=== PATIENT | male | born 1975 | race Two or more races ===

== ENCOUNTER 2018-04-01 09:30 | Emergency (ER) | payer OTHER ==
[2018-04-01] MEDS ORDERED: ONDANSETRON 4 MG/2 ML VIAL IVP ONE (10:28)
[2018-04-01] MEDS ORDERED: NS 1,000 ML IV ONE (10:38)
--- NOTE | 2018-04-01 10:46 | EDPHY ---
General - History Smoking Status: Current every day smoker Time Seen by Provider: 04/01/18 10:39 Narrative: CHIEF COMPLAINT: Fall from ladder, heel pain HISTORY OF PRESENT ILLNESS: Patient presents by EMS with complaints of fall from ladder. He states that he was approximately 10-12 feet in the air when he fell off of the ladder. He landed on his left heel in scraped his left hand. It is severe, 10/10 pain in the left heel. Able to bear weight. He denies any head strike or loss of conscious. He has no headache or neck pain. No chest, back or abdominal pain. No pain in the right arm, left arm or right leg. He has minimal pain in the left forbes. He has an abrasion to the left palm that is minimally painful. He has no nausea vomiting. No visual disturbance. No other associated complaints or modifying factors. REVIEW OF SYSTEMS: 10 systems were reviewed and negative with the exception of the elements mentioned in the history of present illness. PCP: None SPECIALISTS: None PAST MEDICAL HISTORY: Denies ANTICOAGULATED: No PAST SURGICAL HISTORY: No surgical history SOCIAL HISTORY: Lives independently. Works as a painter helper FAMILY HISTORY: Noncontributory EXAMINATION: General Appearance: Alert, no distress. Appears to be in discomfort. Conversing in full sentences. Head: normocephalic, atraumatic. No Ang sign. No raccoon eyes. no depression or deformity. Eyes: Pupils equal and round, no conjunctival pallor or injection ENT, Mouth: Mucous membranes moist Neck: Midline trachea. Normal inspection, supple, non-tender. No crepitus, step-off or deformity. Respiratory: Lungs are clear to auscultation Cardiovascular: Regular rate and rhythm. No murmur. Symmetric radial pulses 2 +. Symmetric DP PT pulses 2+. Gastrointestinal: Abdomen is soft and nontender no tympany rigidity. Back: No midline tenderness. No crepitus, step-off or deformity. Neurological: GCS 15. A&O, nonfocal. Strength is 5/5 in the upper extremities. Strength is 5/5 in the right knee and left knee. Unable to test strength of the left great toe due to pain. Skin: Warm and dry, no rash. Superficial abrasion to the palm of the left hand without laceration or puncture. Extremities: Significant swelling and tenderness of the left calcaneus. Minimal tenderness of left ankle. There is no tenderness of the shoulders, elbows, wrist, snuffbox, knees, hips bilaterally. Will left lower extremity has soft compartments. Psychiatric: Mood and affect normal DIFFERENTIAL DIAGNOSES: Including but not limited to calcaneus fracture, foot sprain, foot fracture, ankle fracture, ankle sprain, ankle dislocation, abrasion MDM: 10:35 a.m. Fall from approximately 10-12 feet with left heel and forbes pain with x-ray revealing fracture of the calcaneus only. He is awake alert no acute distress. Mildly tachycardic, which I suspect is due to pain. He has no complaints of pain anywhere else on his person. There is no tenderness at any point of his vertebral spine, but we will obtain lumbar imaging due to concomitant risk of fracture. 11:00 a.m. Case discussed with orthopedist Dr. Hooper. He has reviewed the x-ray with me. He request a dedicated calcaneus plain film as well the CT of the foot without contrast. He also request a long-leg posterior with stirrup splint heavily padded. He would like to see the patient is clinic on Thursday. 11:45 a.m. Patient re-evaluated. We will repeat pain medication and administer IV fluid. Urinalysis has been obtained to rule out possible renal injury. This is within normal limits and he has no abdominal pain by admission or any tenderness on palpation. Proceed with further imaging and splinting. 1:15 p.m. Patient has return from CT scanner and will be placed in a left lower extremity splint. 1:50 p.m. I discussed the CT findings with Dr. Freeman. There is a questionable abnormality T12 which does not clinically correlate. This is likely chronic as he has no complaints of pain and no palpable tenderness on exam. He does have calcaneus fracture that is closed. He has been placed in a posterior splint and stirrup and I have participated in this. He is neuro intact post splinting. I had a very lengthy discussion using the manager furniture with his nonweightbearing status and precautions. We discussed ice, elevation anti- inflammatories and pain medication. I stressed the importance of elevation to prevent unnecessary swelling as this may delayed his healing, increase his pain , and delay surgical intervention if needed. He has an appointment that has been arranged for him on [place] with Dr. Hooper here in [place] at 2:00 p.m.. We discussed ED precautions. I have answered all his questions. This was all done with the Turkmen certified court interpreter at bedside. He is discharged home well-appearing, stable condition with his pain tolerable at this time. SUPERVISION: Patient was independently examined, but I discussed the case with my secondary supervising physician Dr. Dong CONSULTATION: Orthopedic surgery, Dr. Hooper ([facility]) - Diagnostics Imaging Results: Imaging Impressions Ankle X-Ray 04/01/18 09:36 Impression: Acute calcaneal fracture, as-detailed. Calcaneus X-Ray 04/01/18 11:11 Impression: Acute calcaneal fracture. Portable Left Tibia-Fibula (AP and Lateral Views, 3 Views Total), at 11:19 AM: The tibia and fibula appear intact. There is no fracture, dislocation, or periostitis. There is some mild degenerative pinnacling of the medial tibial spine. The calcaneal fracture is imaged along the caudal margin of the film. There is no ankle joint effusion, although there is soft tissue swelling of the hindfoot. Impression: 1. Intact tibia and fibula. 2. Calcaneal fracture. Note: CT imaging of the left ankle has also been requested, and will be separately reported. Tibia/Fibula X-Ray 04/01/18 11:11 Impression: Acute calcaneal fracture. Portable Left Tibia-Fibula (AP and Lateral Views, 3 Views Total), at 11:19 AM: The tibia and fibula appear intact. There is no fracture, dislocation, or periostitis. There is some mild degenerative pinnacling of the medial tibial spine. The calcaneal fracture is imaged along the caudal margin of the film. There is no ankle joint effusion, although there is soft tissue swelling of the hindfoot. Impression: 1. Intact tibia and fibula. 2. Calcaneal fracture. Note: CT imaging of the left ankle has also been requested, and will be separately reported. Extremity CT 04/01/18 11:35 Impression: Severely comminuted mildly displaced calcaneal fracture with subtalar joint involvement. Findings communicated via secure Voalte text to Elvis Lancaster 04/01/2018 at 13 :[address] 04/01/18 11:35 Impression: 1. Mild anterior wedge compression deformity at T12 with a chronic appearance. No evidence for acute fracture of the lumbar spine. 2. Early degenerative disk and degenerative joint disease at L4-L5 and L5-S1. Results called and discussed with Elvis Lancaster PA-C on April 01, 2018 at 1329 hours. Discussion: The patient was evaluated and managed by the Physician [employer] Torch Brazier. I discussed the patient's presentation and course with the midlevel provider with them and agree with the evaluation. My co-signature indicates that I have reviewed this chart and I agree with the findings and plan of care as documented. I am the secondary supervising physician. (Cha Dong) - Objective Vital Signs: Initial Vital Signs Temperature (C) 36.8 C 04/01/18 09:37 Heart Rate 114 H 04/01/18 09:37 Respiratory Rate 18 04/01/18 09:37 Blood Pressure 147/114 H 04/01/18 09:37 O2 Sat (%) 97 04/01/18 09:37 O2 Delivery Mode Room Air Allergies/Adverse Reactions: No Known Allergies Allergy (Unverified 04/01/18 09:33) Home Medications: Medication Instructions Recorded Ondansetron Odt [Zofran Odt 4 mg 4 mg PO Q6 PRN #12 tab 04/01/18 (*)] Potassium Cl [Klor-Con] 10 meq PO DAILY 04/01/18 oxyCODONE HCL/ACETAMINOPHEN 1 each PO Q4-6PRN PRN #20 tablet 04/01/18 [Percocet 5-325 mg Tablet] Laboratory Results: 04/01/18 11:12 Urine Color PALE YELLOW Urine Appearance CLEAR Urine pH 5.0 (5.0-7.5) Ur Specific [place] 1.005 (1.002-1.030) Urine Protein NEGATIVE (NEGATIVE) Urine Ketones NEGATIVE (NEGATIVE) Urine Blood NEGATIVE (NEGATIVE) Urine Nitrate NEGATIVE (NEGATIVE) Urine Bilirubin NEGATIVE (NEGATIVE) Urine Urobilinogen NEGATIVE EU EU (0.2-1.0) Ur Leukocyte Esterase NEGATIVE (NEGATIVE) Urine RBC 1-3 /hpf /hpf (0-3) Urine WBC 1-3 /hpf /hpf (0-3) Ur Epithelial Cells NONE SEEN /lpf /lpf (NONE-1+) Urine Mucus TRACE /lpf /lpf (NONE-1+) Urine Glucose 1+ H (NEGATIVE) Medications Given: Discontinued Medications Hydromorphone HCl (Dilaudid) 1 mg IVP EDNOW ONE Stop: 04/01/18 12:28 Last Admin: 04/01/18 12:45 Dose: 1 mg Sodium Chloride (Ns) 1,000 mls @ 0 mls/hr IV EDNOW ONE; Wide Open PRN Reason: Protocol Stop: 04/01/18 10:39 Last Admin: 04/01/18 10:55 Dose: 1,000 mls Morphine Sulfate (Morphine) 6 mg IVP EDNOW ONE Stop: 04/01/18 10:29 Last Admin: 04/01/18 10:44 Dose: 6 mg Ondansetron HCl (Zofran) 4 mg IVP EDNOW ONE Stop: 04/01/18 10:29 Last Admin: 04/01/18 10:56 Dose: 4 mg Oxycodone/Acetaminophen (Percocet 5/325) 1 tab PO EDNOW ONE Stop: 04/01/18 14:14 Last Admin: 04/01/18 14:17 Dose: 1 tab Departure - Departure Disposition: Home, Routine, Self-Care Clinical Impression: Blunt trauma Closed fracture of left calcaneus Qualifiers: Encounter type: initial encounter Calcaneus location: body Fracture alignment: nondisplaced Qualified Code(s): S92.015A - Nondisplaced fracture of body of left calcaneus, initial encounter for closed fracture Fall Qualifiers: Encounter type: initial encounter Qualified Code(s): W19.XXXA - Unspecified fall, initial encounter Condition: Good Instructions: Calcaneal Fracture (ED), Open reduction and Internal Fixation of a Calcaneus Fracture (ED), Fall Prevention (ED) Additional Instructions: 1. Completely nonweightbearing on the left lower extremity until seen by Dr. Hooper 2. Pain medication as prescribed as needed 3. Ice and elevate the extremity often 4. Return to emergency department for headache, back pain, nausea, vomiting, numbness, tingling or weakness 1. No poner peso en la extremidad izquierda completamente hasta que te lorenzo el Dr. Hooper. 2. Medicina para el dolor tong recetada tong sea necesario. 3. Hielo y elevacion de la extremidad frequentemente. 4. Regresar a la nicci de emergencia para dolor de ralph, dolor de espalda, nausea, vomito, entumecimiento, hormigueo o debilidad. Appointment with Dr. Manjinder Hooper next ThursdayApril 06 at 2:00pm. Please bring your Workmens Comp paperwork. Aby con el Dr. Hooper el proximo maria g el a las 2:00pm. Por favor traer lucero informacion de compensacion de trabajadores. Referrals: Manjinder Hooper MD [Medical Doctor] - As per Instructions Stand Alone Forms: Work Comp Follow Up, Work Excuse Prescriptions: Ondansetron Odt [Zofran Odt 4 mg (*)] 4 mg PO Q6 PRN #12 tab PRN Reason: Nausea/Vomiting, Use 1st oxyCODONE HCL/ACETAMINOPHEN [Percocet 5-325 mg Tablet] 1 each PO Q4-6PRN PRN # 20 tablet PRN Reason: Pain, Breakthrough Print Language: Turkmen
[2018-04-01] MEDS ORDERED: HYDROmorphONE/DILAUDID 1 MG/ML INJ IVP ONE (12:27)
[2018-04-01] MEDS ORDERED: OXYCODONE/APAP 5/325 TAB PO ONE (14:13)
[2018-04-01] MEDS ORDERED: OXYCODONE/APAP 5/325 TAB ONE (14:15)
[2018-04-01 14:24] VITALS: BP 162/95
== END 2018-04-01 14:37 | disposition home or self-care (01) ==
PROC: 2W3RX1Z Immobilization of Left Lower Leg using Splint (ICD-10-PCS; principal; 2018-04-01)
DX: S92.012A Displaced fracture of body of left calcaneus, initial encounter for closed fracture (principal); W11.XXXA Fall on and from ladder, initial encounter; Y93.E9 Activity, other interior property and clothing maintenance; Y99.0 Civilian activity done for income or pay; E86.9 Volume depletion, unspecified
CPT/HCPCS: 96374; J1170; J2270; J2405